=== PATIENT | female | born 1955 | race Two or more races ===

== ENCOUNTER 2024-12-11 04:14 | Emergency (ER) | payer OTHER ==
[2024-12-11 04:30] VITALS: RESP 18; TEMP 98; BMI 24.3
[2024-12-11 04:48] LABS: ABSOLUTE IMMATURE GRANULOCYTES 0.02 x10^3/uL (0.0-0.031); BASOPHILS # 0.04 x10^3/uL (0.01-0.08); EOSINOPHIL % 0.9 % (0.7-5.8); EOSINOPHILS # 0.09 x10^3/uL (0.04-0.36); MCHC 32.6 g/dl (32.2-35.5); MEAN CELL VOLUME 88.9 fl (79.4-94.8); MEAN PLT VOLUME 13.6 fl (9.4-12.3); MONOCYTE # 0.90 x10^3/uL (0.24-0.86); MONOCYTE % 9.3 % (4.7-12.5); RDW 12.1 % (12.4-16.4)
[2024-12-11 05:42] LABS: GLUCOSE,RANDOM 121.0 mg/dL (74-106); TOT PROT 7.7 g/dl (6.4-8.2)
[2024-12-11 05:43] LABS: CO2 22.0 mmol/L (21-32)
[2024-12-11 05:45] LABS: ALK PHOS 138.0 U/L (40-150)
[2024-12-11 05:47] LABS: SGPT/ALT 56.0 U/L (0-55)
[2024-12-11 05:48] LABS: CREATININE 0.65 mg/dL (0.55-1.3); SGOT/AST 68.0 U/L (5-34)
[2024-12-11] MEDS: ACETAMINOPHEN 1000 MG/100 ML BAG IVPB ONE (05:57)
[2024-12-11] MEDS: ONDANSETRON 4 MG/2 ML VIAL IVPUSH ONE (05:58)
[2024-12-11] MEDS: FAMOTIDINE 20 MG/50 ML IVPB 20 MG/50 ML MG IVPB ONE (05:58)
[2024-12-11 10:03] VITALS: BP 145/74; PULSE 91
== END 2024-12-11 10:23 | disposition home or self-care (01) ==
LOC: JER 04:14
PROC: 3E033GC Introduction of Other Therapeutic Substance into Peripheral Vein, Percutaneous Approach (ICD-10-PCS; principal; 2024-12-11)
PROC: 3E033NZ Introduction of Analgesics, Hypnotics, Sedatives into Peripheral Vein, Percutaneous Approach (ICD-10-PCS; 2024-12-11)
PROC: 3E033GC Introduction of Other Therapeutic Substance into Peripheral Vein, Percutaneous Approach (ICD-10-PCS; 2024-12-11)
DX: K80.20 Calculus of gallbladder without cholecystitis without obstruction (principal); R10.13 Epigastric pain; R10.11 Right upper quadrant pain; R11.0 Nausea; R07.9 Chest pain, unspecified
CPT/HCPCS: 36415; 71045-TC-FY; 76705-TC; 80053; 83605; 83690; 83735; 84484; 85025; 93005; 93010; 96365; 96375; 99285-25